=== PATIENT | female | born 1975 | race African-American/Black ===

== ENCOUNTER 2022-11-04 11:31 | Day surgery (SDC) | payer OTHER, SELFPAY ==
--- NOTE | 2022-11-03 09:34 | HO.ANESPROP2 ---
Documented by User: Katelin Astudillo NP 11/03/22 09:34 HPI - Anesthesia Eval Consult details Narrative: 47yo F for Upper Endoscopy with Balloon Dilitation, Colonoscopy Hx of lap band with removal PMFSH Past Medical History Medical History (Updated 11/03/22 @ 07:59 by Haleigh Gasca) Anxiety Deep vein thrombosis Sleep apnea Surgical History Surgical History (Updated 11/04/22 @ 13:16 by Tanya Henson, RN) H/O repair of rotator cuff H/O umbilical hernia repair History of History of endometrial ablation History of removal of laparoscopic gastric banding device Hx of tubal ligation LAP-BAND surgery status Social History Social History Patient Tobacco Use Status: Current everyday Tobacco user Are you DNR?: No Advance Directives: No Advance Directives Information Provided: Yes Patient : Yes : Yes Poor oral hygiene: Yes Meds Allergies Allergy/AdvReac Type Severity Reaction Status Date / Time No Known Allergies Allergy Verified 11/03/22 07:55 Home Medications Medication Instructions Recorded Confirmed Last Taken Type fluoxetine 20 mg tablet 20 mg PO DAILY 11/03/22 11/03/22 11/03/22 History multivitamin 11/03/22 11/03/22 History citalopram 20 mg tablet 20 mg PO QPM 11/04/22 11/04/22 11/03/22 History Exam Exam Date and Time: November 03, [id number] Assessment and Plan Assessment Anesthesia Assessment: Chart Reviewed Documented by User: Graham Delatorre MD 11/04/22 14:03 [facility] Past Medical History Medical History (Updated 11/03/22 @ 07:59 by Haleigh Gasca) Anxiety Deep vein thrombosis Sleep apnea Family History Family history of problems with anesthesia: No Surgical History Surgical History (Updated 11/04/22 @ 13:16 by Tanya Henson RN) H/O repair of rotator cuff H/O umbilical hernia repair History of History of endometrial ablation History of removal of laparoscopic gastric banding device Hx of tubal ligation LAP-BAND surgery status History of Problems with Anesthesia: No Social History Social History Patient Tobacco Use Status: Current everyday Tobacco user Are you DNR?: No Advance Directives: No Advance Directives Information Provided: Yes Patient : Yes : Yes Poor oral hygiene: Yes Meds Allergies Allergy/AdvReac Type Severity Reaction Status Date / Time No Known Allergies Allergy Verified 11/03/22 07:55 Home Medications Medication Instructions Recorded Confirmed Last Taken Type fluoxetine 20 mg tablet 20 mg PO DAILY 11/03/22 11/03/22 11/03/22 History multivitamin 11/03/22 11/03/22 History citalopram 20 mg tablet 20 mg PO QPM 11/04/22 11/04/22 11/03/22 History Exam Airway Mallampati Class: II TM Dist: >3cm Neck ROM: Full Loose/Missing/Broken Teeth: No Heart: ok Lungs: ok Assessment and Plan Assessment Anesthesia Assessment: Anesthesia Plan Discussed Final Anesthetic Review Family History of Problems with Anesthesia: No History of Problems with Anesthesia: No NPO: Yes ASA Class: III Final Preanesthetic Review: No Changes in Pt Med Stat, Meds/Allgs Chart Reviewed, Consent Obtained/Reviewed and Anes Risks/Benef Reviewed Patient Risk: High Procedure Risk: Intermediate Anesthetic Plan Anesthetic Plan: MAC: and Agree w/ Assess. and Plan Disposition: Standard PACU
[2022-11-04 11:39] VITALS: BP 163/100; PULSE 96; RESP 17; TEMP 36.1; O2SAT 97; BMI 50.5
[2022-11-04 12:00] VITALS: BP 121/76
[2022-11-04 14:47] VITALS: BP 110/58; PULSE 80; RESP 20; TEMP 36.1; O2SAT 97
--- NOTE | 2022-11-04 14:58 | PM.OP ---
Brief Operative Note Date of Service: 11/04/22 Pre-op diagnosis: Dysphagia, Screening Post-op diagnosis: other (Gastric ulcer, Hiatal hernia, GERD, Internal hemorrhoids) Procedure: EGD with bx, and Balloon dilation 18 to 19 to 20cm, and Colonoscopy to the cecum Surgeon: Hao Garay Anesthesia: MAC Was an [employer] used for this Procedure?: No Estimated blood loss (mL): 2.0 Pathology: other (A. Gastric antral ulcer B. Gastric antrum C. EG Junction at 35cm D. Esophagus 20-25cm) Condition: stable Disposition: PACU
[2022-11-04 15:02] VITALS: BP 123/72; PULSE 80; RESP 18; TEMP 36.1; O2SAT 98
--- NOTE | 2022-11-04 23:42 | OP_ITS ---
DATE OF SERVICE: 11/04/2022 SURGEON: Hao Garay MD INDICATIONS: The patient presents for evaluation of intermittent dysphagia, abnormal barium swallow, and colorectal cancer screening. Full consent has been obtained from her for this, including risks of bleeding and perforation. PREOPERATIVE DIAGNOSIS: POSTOPERATIVE DIAGNOSIS: PROCEDURE PERFORMED: Esophagogastroduodenoscopy with biopsies and balloon dilation, and colonoscopy to the cecum. ESTIMATED BLOOD LOSS: COMPLICATIONS: ANESTHESIA: Monitored anesthesia care. ASSISTANTS: SPECIMENS: PREOPERATIVE DIAGNOSES: Dysphagia, abnormal barium swallow, colorectal cancer screening. POSTOPERATIVE DIAGNOSES: Dysphagia, abnormal barium swallow, colorectal cancer screening, gastric ulcer, gastritis, hiatal hernia, gastroesophageal reflux, status post balloon dilation of gastroesophageal junction, internal hemorrhoids. DESCRIPTION OF PROCEDURE: The patient was placed in the left lateral decubitus position. The Olympus video gastroscope was passed in the posterior oropharynx and upper esophagus under direct vision. The scope was passed slowly to the distal esophagus. The gastroesophageal junction appeared at 35 cm. There was some slight irregularity consistent with reflux and 1 short, less than 1 cm erosion. There was no definitive evidence of Morton's mucosa. With insufflation of air there did not appear to be any stricture. The scope easily entered into a small hiatal hernia and was then advanced to the pylorus. The duodenum was cannulated to the descending portion. The duodenum including the bulb appeared normal without mass or ulceration. The scope was withdrawn back to the stomach. The gastric antrum had an approximately 8 to 10 mm ulcer with surrounding edema and erythema located in the pre-pyloric area between the greater curvature and posterior wall. There was no sign of any bleeding. There was good peristalsis. The scope was retroflexed visualizing the proximal stomach carefully which appeared normal, without any sign of mass or ulceration. The scope was straightened. Biopsies were obtained from the margins of the ulcer, as well as from the gastric antrum. The scope was withdrawn back in the esophagus. Given her symptomatology, and the barium swallow report, I did use a [employer] incremental balloon to dilate the gastroesophageal junction from 18 mm to 19 mm to 20 mm at the recommended pressure for between 30 and 60 seconds each. Post dilation, there did not appear to be any appreciable change in the gastroesophageal junction. I also obtained biopsies at the gastroesophageal junction at 35 cm. Proximal to this, the esophageal mucosa appeared normal. I did obtain biopsies between 20 and 25 cm to rule out eosinophilic esophagitis. There were no proximal rings nor webs. The scope was withdrawn from the patient. She was turned around for the colonoscopy. The digital rectal exam revealed no abnormalities. The Olympus video pediatric colonoscope was entered into the rectum and advanced to the cecum with the assistance of abdominal wall pressure. Once in the cecum, I did identify normal-appearing cecal pouch with appendiceal orifice and a normal-appearing ileocecal valve. The entire cecum and ileocecal valve appeared normal. The scope was slowly withdrawn assessing all mucosal surfaces carefully. Preparation was excellent. I did not visualize any sign of polyps, colitis, nor angiodysplasia. In the rectum, scope was retroflexed visualizing some small internal hemorrhoids, but no other pathology. The rectal mucosa appeared normal. Scope was straightened and withdrawn from the patient. She tolerated both procedures well and was returned to the recovery area in stable condition. IMPRESSION: 1. Gastric ulcer, rule out Helicobacter pylori. 2. Hiatal hernia. 3. Gastroesophageal reflux. 4. Rule out eosinophilic esophagitis. 5. Status post balloon dilation of gastroesophageal junction. 6. Internal hemorrhoids. PLAN: The results of the pathology will be checked. If H pylori is present, I would recommend treating that. She will be given a prescription to use omeprazole 40 mg daily for both the ulcer and the evidence of reflux, which may be contributing to her dysphagia with associated esophageal spasm. She will stay on that until she sees me in followup in the early fall, and we will then schedule a followup endoscopy at that point to assess for ulcer healing. She was advised not to use any aspirin or NSAIDs long-term. I would recommend a repeat colonoscopy in 10 years. She will call sooner as needed. MD ROSALVA Holden/RAJ / [phone] ROQUE
== END 2022-11-04 15:35 | disposition home or self-care (01) ==
PROVIDERS: PCP Nurse Practitioner Adult Health; Visit Provider Internal Medicine
PROC: (CPT 45378; principal; 2022-11-04 12:40)
PROC: 0DJD8ZZ Inspection of Lower Intestinal Tract, Via Natural or Artificial Opening Endoscopic (ICD-10-PCS; CPT 45378; 2022-11-04 12:40)
DX: Z12.11 Encounter for screening for malignant neoplasm of colon (principal); R13.19 Other dysphagia; R93.3 Abnormal findings on diagnostic imaging of other parts of digestive tract; K25.9 Gastric ulcer, unspecified as acute or chronic, without hemorrhage or perforation; K44.9 Diaphragmatic hernia without obstruction or gangrene; K21.9 Gastro-esophageal reflux disease without esophagitis; K64.8 Other hemorrhoids; F17.200 Nicotine dependence, unspecified, uncomplicated; F41.9 Anxiety disorder, unspecified; G47.30 Sleep apnea, unspecified; E66.9 Obesity, unspecified; Z68.43 Body mass index [BMI] 50.0-59.9, adult; Z86.718 Personal history of other venous thrombosis and embolism; Z86.711 Personal history of pulmonary embolism; Z98.84 Bariatric surgery status; Z98.51 Tubal ligation status; Z99.89 Dependence on other enabling machines and devices; Z79.899 Other long term (current) drug therapy
CPT/HCPCS: 45378; 43249; 43239; 88305; 88342; C1726; J3010

== ENCOUNTER 2023-05-22 09:32 | Day surgery (SDC) | payer OTHER, SELFPAY ==
--- NOTE | 2023-05-18 14:27 | P.CONAN_ITS ---
Documented by User: Katelin Astudillo NP 05/18/23 14:27 HPI - Anesthesia Eval Consult details Narrative: 47yo F for Upper Endoscopy [facility] Past Medical History Medical History Depression GERD (gastroesophageal reflux disease) Sleep apnea Deep vein thrombosis Anxiety Family History Family history of problems with anesthesia: No Surgical History Surgical History History of esophagogastroduodenoscopy (EGD) History of endometrial ablation Hx of tubal ligation History of History of removal of laparoscopic gastric banding device LAP-BAND surgery status H/O repair of rotator cuff H/O umbilical hernia repair History of Problems with Anesthesia: No Social History Social History Patient Tobacco Use Status: Current everyday Tobacco user Use of substances other than those prescribed or required for medical reasons: No Are you DNR?: No Advance Directives: No Advance Directives Information Provided: Yes Meds Allergies Allergy/AdvReac Type Severity Reaction Status Date / Time No Known Allergies Allergy Verified 05/22/23 09:43 Home Medications Medication Instructions Recorded Confirmed Last Taken Type fluoxetine 20 mg tablet 20 mg PO DAILY 11/03/22 05/22/23 11/03/22 History multivitamin 1 tab PO DAILY 11/03/22 05/22/23 11/03/22 History dulaglutide 1.5 mg/0.5 mL 1.5 mg subcut QWEEK 05/18/23 05/22/23 05/10/23 History subcutaneous pen injector (Trulicity) omeprazole 40 mg capsule,delayed 40 mg PO DAILY 05/18/23 05/22/23 Unknown History release Assessment and Plan Assessment Anesthesia Assessment: Chart Reviewed Final Anesthetic Review Family History of Problems with Anesthesia: No History of Problems with Anesthesia: No Documented by User: Michell Rico MD 05/22/23 10:40 [facility] Past Medical History Medical History Depression GERD (gastroesophageal reflux disease) Sleep apnea Deep vein thrombosis Anxiety Surgical History Surgical History History of esophagogastroduodenoscopy (EGD) History of endometrial ablation Hx of tubal ligation History of History of removal of laparoscopic gastric banding device LAP-BAND surgery status H/O repair of rotator cuff H/O umbilical hernia repair Social History Social History Patient Tobacco Use Status: Current everyday Tobacco user Use of substances other than those prescribed or required for medical reasons: No Are you DNR?: No Advance Directives: No Advance Directives Information Provided: Yes Meds Allergies Allergy/AdvReac Type Severity Reaction Status Date / Time No Known Allergies Allergy Verified 05/22/23 09:43 Home Medications Medication Instructions Recorded Confirmed Last Taken Type fluoxetine 20 mg tablet 20 mg PO DAILY 11/03/22 05/22/23 11/03/22 History multivitamin 1 tab PO DAILY 11/03/22 05/22/23 11/03/22 History dulaglutide 1.5 mg/0.5 mL 1.5 mg subcut QWEEK 05/18/23 05/22/23 05/10/23 History subcutaneous pen injector (Trulicity) omeprazole 40 mg capsule,delayed 40 mg PO DAILY 05/18/23 05/22/23 Unknown History release Exam Airway Mallampati Class: II TM Dist: >3cm Neck ROM: Full Heart: rrr Lungs: cta Assessment and Plan Final Anesthetic Review NPO: Yes ASA Class: III Final Preanesthetic Review: No Changes in Pt Med Stat, Meds/Allgs Chart Reviewed, Consent Obtained/Reviewed and Anes Risks/Benef Reviewed Patient Risk: Intermediate Procedure Risk: Low Anesthetic Plan Anesthetic Plan: MAC: Disposition: Standard PACU
[2023-05-18 14:33] VITALS: BMI 52.8
[2023-05-22 09:45] VITALS: BMI 55.3
[2023-05-22 09:53] VITALS: BP 125/77; PULSE 90; RESP 16; TEMP 36.6; O2SAT 96
[2023-05-22] MEDS: Lactated Ringers 1,000 ML 100 ML IVCONT (10:10)
--- NOTE | 2023-05-22 10:47 | P.BOP_ITS ---
Brief Operative Note Date of Service: 05/22/23 Pre-op diagnosis: Hx of gastric ulcer, GERD Post-op diagnosis: other (Healed ulcer, Hiatal hernia, GERD) Procedure: EGD with biopsies Surgeon: Hao Garay MD Anesthesia: MAC Was an [employer] used for this Procedure?: No Estimated blood loss (mL): 2.0 Pathology: other (A. EG Junction at 32cm) Condition: stable Disposition: PACU
[2023-05-22 10:50] VITALS: BP 129/86; PULSE 92; RESP 16; TEMP 36.1; O2SAT 98
[2023-05-22 11:04] VITALS: BP 131/82; PULSE 83; RESP 18; TEMP 36.6; O2SAT 97
--- NOTE | 2023-05-22 11:09 | OP_ITS ---
DATE OF SERVICE: 05/22/2023 SURGEON: Hao Garay MD INDICATIONS: The patient presents for followup of gastric ulcer and reflux. Full consent has been obtained from her for this, including risks of bleeding and perforation. PREOPERATIVE DIAGNOSIS: History of gastric ulcer and reflux. POSTOPERATIVE DIAGNOSIS: PROCEDURE PERFORMED: Esophagogastroduodenoscopy with biopsy. ESTIMATED BLOOD LOSS: COMPLICATIONS: ANESTHESIA: Monitored anesthesia care. ASSISTANTS: SPECIMENS: POSTOPERATIVE DIAGNOSES: History of gastric ulcer and reflux, healed gastric ulcer, hiatal hernia, rule out Morton esophagus. DESCRIPTION OF PROCEDURE: The patient was placed in the left lateral decubitus position. The Olympus video gastroscope was passed in the posterior oropharynx and upper esophagus under direct vision. The scope was passed slowly into the distal esophagus. The gastroesophageal junction appeared at 32 cm. There was some slight irregularity consistent with reflux and possibly small areas of Morton mucosa. There was no evidence of any esophagitis nor any lesions. There was a moderate-sized hiatal hernia. The hiatal hernia mucosa appeared normal. The scope was advanced to the pylorus, and the duodenum was cannulated to the descending portion. The duodenum including the bulb appeared normal without mass or ulceration. The scope was withdrawn back to the stomach. The gastric antrum and body appeared normal. I did not visualize any sign of residual gastric ulcer. There was good peristalsis. The scope was retroflexed visualizing the proximal stomach carefully, which appeared normal, without any sign of mass or ulceration. The scope was straightened and withdrawn back to the esophagus. Biopsies were obtained at the EG junction at 32 cm. Proximal to this, the esophageal mucosa appeared normal. The scope was withdrawn from the patient. She tolerated the procedure well and was returned to the recovery area in stable condition. IMPRESSION: 1. Hiatal hernia, gastroesophageal reflux, rule out Morton esophagus. 2. Healed gastric ulcer. PLAN: The results of the biopsies will be checked. She will continue omeprazole for symptomatic relief of reflux. She was advised not to use any aspirin and NSAIDs for at least a week but long-term in general given the previous history of ulcer. She will undergo a followup colonoscopy for screening in 2032 given her negative colonoscopy last year. She will otherwise see me on a p.r.n. basis. MD ROSALVA Holden/RAJ / [phone]
== END 2023-05-22 11:40 | disposition home or self-care (01) ==
PROVIDERS: PCP Nurse Practitioner Adult Health; Visit Provider Internal Medicine
PROC: 0DJ08ZZ Inspection of Upper Intestinal Tract, Via Natural or Artificial Opening Endoscopic (ICD-10-PCS; CPT 43235; principal; 2023-05-22 10:40)
DX: K21.00 Gastro-esophageal reflux disease with esophagitis, without bleeding (principal); K44.9 Diaphragmatic hernia without obstruction or gangrene; G47.30 Sleep apnea, unspecified; Z99.89 Dependence on other enabling machines and devices; Z86.718 Personal history of other venous thrombosis and embolism; F17.200 Nicotine dependence, unspecified, uncomplicated
CPT/HCPCS: 43239; 88305; J1100; J1596; J2704